=== PATIENT | male | born 1960 | race Caucasian/White ===

== ENCOUNTER 2020-07-31 19:52 | Emergency (ER) | payer SELFPAY ==
[~2020-07-31] VITALS: Ht 185.4 cm; Wt 72.7 kg
[2020-07-31 19:55] VITALS: BP 134/91
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
== END 2020-07-31 20:38 | disposition home or self-care (01) ==
LOC: ER 19:52
DX: S09.8XXA Other specified injuries of head, initial encounter (principal); S00.03XA Contusion of scalp, initial encounter; F10.129 Alcohol abuse with intoxication, unspecified; Z72.89 Other problems related to lifestyle; V87.7XXA Person injured in collision between other specified motor vehicles (traffic), initial encounter; Y93.89 Activity, other specified; Y92.89 Other specified places as the place of occurrence of the external cause; Y99.8 Other external cause status; Y90.9 Presence of alcohol in blood, level not specified
CPT/HCPCS: 99283